=== PATIENT | male | born 1940 | race Caucasian/White ===

== ENCOUNTER → 2016-10-19 | Outpatient (CLI) | payer MEDICARE ==
[~2016-10-19] MED LIST: ACET325; ALPR.25 PO; ALPR.5 PO; Aspirin Chew PO; CYAN1KIT2 IM; HYDR-2768 PO; IBUP400T20 PO; IRON18TA2 PO; IRON27TA PO; TOPR25TA PO
[2016-10-19 12:46] LABS: AUTOMATED NEUTROPHIL # 2.8 TH/MM3 (1.8-7.7); BASOPHIL % 0.7 % (0.0-2.0); EOSINOPHIL # 0.1 TH/MM3 (0-0.4); HEMATOCRIT 41.7 % (39.0-51.0); HEMO FLAGS DIFF FINAL; LYMPHOCYTE # 1.2 TH/MM3 (1.0-4.8); MEAN CORPUSCULAR HEMOGLOBIN 30.1 PG (27.0-34.0); MEAN CORPUSCULAR HGB CONC 33.5 % (32.0-36.0); MONO % 10.1 % (0.0-8.0); NEUT % 61.2 % (16.0-70.0); PLATELET COUNT 225 TH/MM3 (150-450); RED BLOOD COUNT 4.63 MIL/MM3 (4.50-5.90); RED CELL DISTRIBUTION WIDTH 15.1 % (11.6-17.2); WHITE BLOOD COUNT 4.6 TH/MM3 (4.0-11.0)
[2016-10-19 13:15] LABS: ALKALINE PHOSPHATASE 78 U/L (45-117); ALT (GPT) 19 U/L (12-78); ANION GAP 10 MEQ/L (5-15); AST (GOT) 13 U/L (15-37); BLOOD UREA NITROGEN 13 MG/DL (7-18); CHLORIDE 104 MEQ/L (98-107); GLOMERULAR FILTRATION RATE 93 ML/MIN (>89); GLUCOSE,FASTING 122 MG/DL (74-99); HDL CHOLESTEROL 63.6 MG/DL (40.0-60.0); LDL CHOLESTEROL 112 MG/DL (0-99); SODIUM (NA) 140 MEQ/L (136-145); TOTAL BILIRUBIN ADULT 0.4 MG/DL (0.2-1.0)
[2016-10-19 16:44] LABS: HEMOGLOBIN A1a 1.1 %; HEMOGLOBIN A1b 1.6 %; HEMOGLOBIN Ao 84.3 %; HEMOGLOBIN LA1C 2.4 %; HEMOGLOBIN P3 5.7 %
== END ==
LOC: PLAB 08:34
PROVIDERS: ATTEND Family Medicine
DX: I10 Essential (primary) hypertension (principal); I35.0 Nonrheumatic aortic (valve) stenosis; K21.9 Gastro-esophageal reflux disease without esophagitis; G25.81 Restless legs syndrome; E11.9 Type 2 diabetes mellitus without complications
CPT/HCPCS: 36415; 80053; 80061; 83036; 85025

== ENCOUNTER 2017-02-01 18:58 | Observation (INO) | payer MEDICARE ==
[2017-02-01] VITALS (16 sets, daily range): BP systolic 144–192; BP diastolic 68–97; PULSE 66–100; RESP 18–20; TEMP 98–98.5; O2SAT 93–99
[~2017-02-01] VITALS: Ht 177.8 cm; Wt 102.3 kg
[~2017-02-01 18:58] MED LIST changes: -ALPR.5 PO; -Aspirin Chew PO; -CYAN1KIT2 IM; -IRON18TA2 PO; -TOPR25TA PO
[2017-02-01] MEDS ORDERED: SODIUM CHLOR 0.9% 1000 ML INJ 1,000 ML IV ONE (19:13)
--- NOTE | 2017-02-01 19:22 | RADHPO ---
EXAM DATE/TIME: 02/01/2017 18:59 [facility] COMPARISON: No previous studies available for comparison. INDICATIONS : Stroke alert, tingling and right arm numbess. RADIATION DOSE: 56.94 CTDIvol (mGy) This report was called by Angie to Kirill at 1918 MEDICAL HISTORY : Hypertension. SURGICAL HISTORY : Appendectomy. Cholecystectomy. ENCOUNTER: Initial ACUITY: 1 day PAIN SCALE: 5/10 LOCATION: Right cranial numbness TECHNIQUE: Multiple contiguous axial images were obtained of the head. Using automated exposure control and adj ustment of the mA and/or kV according to patient size, radiation dose was kept as low as reasonably a chievable to obtain optimal diagnostic quality images. FINDINGS: CEREBRUM: The ventricles are normal for age. No evidence of midline shift, mass lesion, hemorrhage or acute in farction. No extra-axial fluid collections are seen. POSTERIOR FOSSA: The cerebellum and brainstem are intact. The 4th ventricle is midline. The cerebellopontine angle i s unremarkable. EXTRACRANIAL: The visualized portion of the orbits is intact. SKULL: The calvaria is intact. No evidence of skull fracture. CONCLUSION: Normal examination. Kartik Adams MD on February 01, 2017 at 19:18 Board Certified Radiologist. This report was verified electronically.
[2017-02-01 19:25] LABS: AUTOMATED NEUTROPHIL # 4.4 TH/MM3 (1.8-7.7); BASOPHIL % 0.6 % (0.0-2.0); EOSINOPHIL % 0.5 % (0.0-4.0); HEMATOCRIT 37.8 % (39.0-51.0); HEMO FLAGS DIFF FINAL; LYMPH % 25.8 % (9.0-44.0); LYMPHOCYTE # 1.8 TH/MM3 (1.0-4.8); MEAN CELL VOLUME 90.9 FL (80.0-100.0); MEAN CORPUSCULAR HEMOGLOBIN 31.2 PG (27.0-34.0); MEAN CORPUSCULAR HGB CONC 34.3 % (32.0-36.0); MONO % 8.4 % (0.0-8.0); NEUT % 64.7 % (16.0-70.0); PLATELET COUNT 224 TH/MM3 (150-450); RED BLOOD COUNT 4.16 MIL/MM3 (4.50-5.90); RED CELL DISTRIBUTION WIDTH 14.8 % (11.6-17.2); WHITE BLOOD COUNT 6.9 TH/MM3 (4.0-11.0)
[2017-02-01 19:36] LABS: BLOOD, URINE NEG (NEG); GLUCOSE,URINE NEG (NEG); KETONE, URINE TRACE mg/dL (NEG); NITRITE,URINE NEG (NEG); PH, URINE 5.5 (5.0-8.5)
[2017-02-01 19:37] LABS: CHLORIDE 107 MEQ/L (98-107); POTASSIUM 3.4 MEQ/L (3.5-5.1); SODIUM (NA) 143 MEQ/L (136-145)
[2017-02-01 19:40] LABS: ANION GAP 10 MEQ/L (5-15); BICARBONATE 25.9 MEQ/L (21.0-32.0)
[2017-02-01 19:41] LABS: BLOOD UREA NITROGEN 20 MG/DL (7-18)
--- NOTE | 2017-02-01 19:41 | PD ---
HPI Chief Complaint: Neuro Symptoms/ Deficits Time Seen by Provider: 19:13 Travel History International Travel<30 days: No Contact w/Intl Traveler<30days: No Traveled to known affect area: No History of Present Illness HPI The patient is a 76-year-old male that states he is not been feeling right in his head for 3 days. He woke up this morning and had tingling on both sides of his lips. At approximately 645 he had trouble controlling a tremor in his right arm and states he could not open his right hand. He denies any weakness in his right hand and has an excellent hand gas inspector. He said he is had no tremor before. He does have a history of anxiety. He denies any right leg symptoms, has normal speech and denies any headache. He denies any vertigo. PFSH Past Medical History Cancer: No Cardiovascular Problems: Yes Diabetes: No Diminished Hearing: No Endocrine: No Gastrointestinal Disorders: Yes (gerd) Hepatitis: No Hiatal Hernia: No Hypertension: Yes Immune Disorder: No Musculoskeletal: Yes (arthritis ) Neurologic: No Psychiatric: No Reproductive: No Respiratory: No Thyroid Disease: No Tetanus Vaccination: < 5 Years Influenza Vaccination: No Past Surgical History Abdominal Surgery: Yes (gallbladder, APPY) AICD: No Eye Surgery: Yes (cataract surgery) Joint Replacement: No Pacemaker: No Tonsillectomy: Yes (CHILDHOOD) Other Surgery: Yes (L salivary gland surgery ) Social History Alcohol Use: Yes (3 DRINKS DAILY) Tobacco Use: No (QUIT 30 YEARS AGO) Substance Use: No Allergies-Medications (Allergen,Severity, Reaction): Coded Allergies: No Known Allergies (Verified , 02/01/17) Reported Meds & Prescriptions Reported Meds & Active Scripts Active Reported B-12 Compliance Inj (Cyanocobalamin) 1,000 Mcg/Ml Kit 1,000 Mcg IM Q30D Iron (Ferrous Fumarate) 18 Mg Tab 65 Mg PO DAILY Toprol XL (Metoprolol Succinate) 25 Mg Tab 25 Mg PO DAILY Xanax (Alprazolam) 0.5 Mg Tab 0.5 Mg PO HS Review of Systems Except as stated in HPI: all other systems reviewed are Neg Physical Exam Narrative GENERAL: The patient is alert, anxious, oriented 3 in no physical distress. His vital signs show blood pressure 162/97 with a heart rate of 100 which is a sinus tachycardia and are otherwise normal. Repeat blood pressure is 175/80 and repeat heart rate is 92. SKIN: Focused skin assessment warm/dry. HEAD: Atraumatic. Normocephalic. EYES: Pupils equal and round. No scleral icterus. No injection or drainage. ENT: No nasal bleeding or discharge. Mucous membranes pink and moist. NECK: Trachea midline. No JVD. CARDIOVASCULAR: Regular rate and rhythm. No murmur appreciated. RESPIRATORY: No accessory muscle use. Clear to auscultation. Breath sounds equal bilaterally. GASTROINTESTINAL: Abdomen soft, non-tender, nondistended. Hepatic and splenic margins not palpable. MUSCULOSKELETAL: No obvious deformities. No clubbing. No cyanosis. No edema. NEUROLOGICAL: Awake and alert. No obvious cranial nerve deficits. Motor grossly within normal limits. Normal speech. On the finger to nose test the patient performs is fairly well when he can control his tremor. He does not past point. PSYCHIATRIC: Appropriate mood and affect; insight and judgment normal. Data Data Last Documented VS Vital Signs Date Time Temp Pulse Resp B/P Pulse Ox O2 Delivery O2 Flow Rate FiO2 02/01/17 19:15 20 99 Room Air 02/01/17 19:05 98.0 100 162/[address] Brain W/O Iv Contrast(Rout) (02/01/17 ) Cath For Specimen (02/01/17 19:13) Neuro Checks Q2HX12,Q4H (02/01/17 19:13) Nursing Bedside Swallow Assess .ONCE (02/01/17 19:13) Activity Bed Rest (02/01/17 19:13) Diet Npo (02/02/17 Breakfast) Prothrombin Time / Inr (Pt) (02/01/17 19:13) Act Partial Throm Time (Ptt) (02/01/17 19:13) Complete Blood Count With Diff (02/01/17 19:13) Basic Metabolic Panel (Bmp) (02/01/17 19:13) Fibrinogen (02/01/17 19:13) Creatine Kinase (Cpk) (02/01/17 19:13) Troponin I (02/01/17 19:13) Ua Includes Microscopic (02/01/17 19:13) Drug Screen, Random Urine (02/01/17 19:13) Type And Screen (02/01/17 19:13) Electrocardiogram (02/01/17 ) Consult Neurology (02/01/17 19:13) Sodium Chlor 0.9% 1000 Ml Inj (Ns 1000 M (02/01/17 19:13) Blood Glucose (02/01/17 19:13) Ecg Monitoring (02/01/17 19:13) Iv Access Insert/Monitor (02/01/17 19:13) NPO (02/01/17 19:13) Oximetry (02/01/17 19:13) Oxygen Administration (02/01/17 19:13) Resp Oxygen Nicola C Titrat 1-4 L (02/01/17 19:13) (Hub Use Only)Inp Phy Cons/Ref (02/01/17 ) Labs Laboratory Tests Test 02/01/17 02/01/17 19:15 19:30 White Blood Count 6.9 TH/MM3 Red Blood Count 4.16 MIL/MM3 Hemoglobin 13.0 GM/DL Hematocrit 37.8 % Mean Corpuscular Volume 90.9 FL Mean Corpuscular Hemoglobin 31.2 PG Mean Corpuscular Hemoglobin 34.3 % Concent Red Cell Distribution Width 14.8 % Platelet Count 224 TH/MM3 Mean Platelet Volume 8.0 FL Neutrophils (%) (Auto) 64.7 % Lymphocytes (%) (Auto) 25.8 % Monocytes (%) (Auto) 8.4 % Eosinophils (%) (Auto) 0.5 % Basophils (%) (Auto) 0.6 % Neutrophils # (Auto) 4.4 TH/MM3 Lymphocytes # (Auto) 1.8 TH/MM3 Monocytes # (Auto) 0.6 TH/MM3 Eosinophils # (Auto) 0.0 TH/MM3 Basophils # (Auto) 0.0 TH/MM3 CBC Comment DIFF FINAL Differential Comment Prothrombin Time 10.5 SEC Prothromb Time International 1.0 RATIO Ratio Activated Partial 23.8 SEC Thromboplast Time Sodium Level 143 MEQ/L Potassium Level 3.4 MEQ/L Chloride Level 107 MEQ/L Carbon Dioxide Level 25.9 MEQ/L Anion Gap 10 MEQ/L Blood Urea Nitrogen 20 MG/DL Creatinine 0.92 MG/DL Estimat Glomerular Filtration 80 ML/MIN Rate Random Glucose 122 MG/DL Calcium Level 8.7 MG/DL Total Creatine Kinase 141 U/L Troponin I LESS THAN 0.02 NG/ML Urine Color YELLOW Urine Turbidity CLEAR Urine pH 5.5 Urine Specific [place] 1.031 Urine Protein TRACE mg/dL Urine Glucose (UA) NEG mg/dL Urine Ketones TRACE mg/dL Urine Occult Blood NEG Urine Nitrite NEG Urine Bilirubin NEG Urine Leukocyte Esterase NEG Urine RBC 0-2 /hpf Urine WBC 0-2 /hpf Urine Squamous Epithelial 0-5 /hpf Cells Urine Bacteria NONE /hpf Urine Opiates Screen NEG Urine Barbiturates Screen NEG Urine Amphetamines Screen NEG Urine Benzodiazepines Screen POS Urine Cocaine Screen NEG Urine Cannabinoids Screen NEG MDM Medical Decision Making Medical Screen Exam Complete: Yes Emergency Medical Condition: Yes Medical Record Reviewed: Yes Interpretation(s) EKG shows sinus rhythm and no acute ST elevation or depression. The CBC is normal except for hematocrit of 37.8. The urine toxicology screen is negative for all substances tested except benzodiazepines, Xanax as a prescribed medication for this patient. The urine shows trace ketones, urine specific gravity 1.031 is otherwise normal and culture is not indicated. Differential Diagnosis Anxiety, conversion reaction, ischemic CVA, tremor etiology undetermined Narrative Course The patient has a right arm tremor etiology undetermined. I discussed the patient with Dr. Billingsley in neurology and he suggested the patient be admitted and an MRI of the brain be done. I discussed the patient with Dr. Mazariegos, the patient will be 23 hour observation to her. Procedures EKG Prior to Arrival: No Diagnosis Primary Impression: Tremor of right hand Additional Impression: Anxiety Admitting Information Admitting Physician Requests: Observation Chau Vasquez MD February 01, 2017 19:41
[2017-02-01 19:42] LABS: COMMENT2 (UR) MUCOUS PRESENT; RBC, URINE 0-2 /hpf (0-3); SQUAMOUS EPITHELIAL CELL URINE 0-5 /hpf (0-5); URINE COLOR YELLOW (YELLW/STRAW); WBC, URINE 0-2 /hpf (0-5)
[2017-02-01 19:42] LABS: APTT (PATIENT) 23.8 SEC (24.3-30.1); PROTHROMBIN TIME - PATIENT 10.5 SEC (9.8-11.6)
[2017-02-01 19:44] LABS: GLOMERULAR FILTRATION RATE 80 ML/MIN (>89)
[2017-02-01 19:44] LABS: AMPHETAMINE, URINE NEG (NEG); BARBITURATES, URINE NEG (NEG)
[2017-02-01 19:45] LABS: COCAINE, URINE NEG (NEG)
[2017-02-01 19:47] LABS: CREATINE KINASE 141 U/L (39-308)
[2017-02-01] MEDS ORDERED: TOPR25TA PO (19:57)
[2017-02-01] MEDS ORDERED: ALPR.5 PO (19:57)
[2017-02-01] MEDS ORDERED: IRON18TA2 PO (19:58)
[2017-02-01] MEDS ORDERED: CYAN1KIT2 IM (19:58)
[2017-02-01] MEDS ORDERED: SODIUM CHLORIDE 0.9% FLUSH 10 ML FLUSH IV FLUSH PRN (20:30)
[2017-02-01] MEDS: SODIUM CHLORIDE 0.9% FLUSH 10 ML FLUSH IV FLUSH SCH (20:50)
[2017-02-01] MEDS ORDERED: ALPRAZolam 0.5 MG TAB PO ONE (23:00)
[2017-02-02] VITALS (9 sets, daily range): BP systolic 156–182; BP diastolic 78–100; PULSE 63–77; RESP 18–22; TEMP 96.5–98; O2SAT 95–98
--- NOTE | 2017-02-02 06:39 | EKG ---
Date Performed: 02/01/2017 Time Performed: 19:10:06 PTAGE: 76 years EKG: Sinus rhythm with premature atrial contractions Inferior/lateral ST-T changes are nonspecific Borderline ECG COMP ARED TO PRIOR ELECTROCARDIOGRAM, ST segment changes are present. PREVIOUS TRACING : 01/18/2016 10.05 DOCTOR: Ramy Roberson Interpretating Date/Time 02/02/2017 06:39:00
--- NOTE | 2017-02-02 08:20 | RADHPO ---
EXAM DATE/TIME: 02/02/2017 07:54 [facility] COMPARISON: No previous studies available for comparison. INDICATIONS : Syncope. MEDICAL HISTORY : Hypertension. Aortic valve stenosis. SURGICAL HISTORY : Cholecystectomy. Appendectomy. Tonsillectomy. Cataracts removed. Left side saliva glands removed. ENCOUNTER: Initial ACUITY: 1 day PAIN SCORE: 1/10 LOCATION: Bilateral neck PEAK SYSTOLIC VELOCITIES (cm/sec): ICA/CCA RATIO: Right: 2.0 Left: 1.2 ICA: Right: 123 Left: 98 CCA: Right: 62 Left: 81 ECA: Right: 108 Left: 69 VERTEBRAL: Right: 33 antegrade Left: 79 antegrade Elevated flow velocities and ICA/CCA ratios have been found to correlate with increased degrees of vessel stenosis, calculated as percentage of diameter relative to a normal segment of distal ICA/CCA FINDINGS: RIGHT CAROTID: No significant stenosis is visualized. Minimal plaque. The waveforms are within normal limits. LEFT CAROTID: No significant stenosis is visualized. Minimal plaque. The waveforms are within normal limits. VERTEBRAL ARTERIES: Antegrade flow is seen in both vertebral arteries. MISCELLANEOUS: None. CONCLUSION: Slightly elevated ratio and borderline elevated velocities suggest a 50% stenosis of the right video editing intern al carotid artery. No hemodynamically significant stenosis on the left. Farhad Miranda MD on February 02, 2017 at 8:16 Board Certified Radiologist. This report was verified electronically.
[2017-02-02] MEDS ORDERED: GLUCAGON 1 MG/ML VIAL IM/SQ PRN (09:00)
[2017-02-02] MEDS ORDERED: SODIUM CHLORIDE 0.9% FLUSH 10 ML FLUSH IV FLUSH PRN (09:00)
[2017-02-02] MEDS ORDERED: SODIUM CHLORIDE 0.9% FLUSH 10 ML FLUSH IV FLUSH SCH (09:00)
[2017-02-02] MEDS ORDERED: DEXTROSE 50% IN WATER 50 ML VIAL(D50) IV PUSH PRN (09:00)
--- NOTE | 2017-02-02 09:28 | MB ---
cc: NEVIN BAE M.D. DATE OF CONSULTATION 02/02/2017 REASON FOR CONSULTATION Stroke alert HISTORY OF PRESENT ILLNESS Mr. Alexander is a 76-year-old man who presented to the ER yesterday evening as a stroke alert. I spoke with Dr. Vasquez. He noted difficulty with a tremor in the right arm coming out around 06:45 p.m. He could not open his right hand. When he presented the ER, he had mainly a tremor, but was able to do [id number] well. He had normal strength in the hand. CT of the brain was unremarkable. I spoke to Dr. Vasquez in the ER, the symptoms were mainly that of a tremor. There is no clear evidence of a stroke and definitely the symptoms were improving and with minimal deficit, I recommended against IV tPA since the patient was not clearly having a stroke and the symptoms were minimal. He does note that when he woke up in the morning he was having headaches. He has been having migraine headaches and occipital neuralgia headaches with significant anxiety as well. PAST MEDICAL HISTORY History of: 1. Migraine headaches 2. Cervical spondylosis 3. Cholecystectomy 4. Appendectomy 5. Cataract surgery 6. Salivary gland surgery 7. Hypertension ALLERGIES None known. MEDICATIONS At home: 1. Toprol XL 25 mg daily 2. Xanax as needed for anxiety. 3. Vitamin B12 4. Iron complex SOCIAL HISTORY He drinks alcohol three drinks daily. He stopped smoking 30 years ago. No other drug abuse. NEUROLOGIC EXAMINATION Blood pressure is 182/95, pulse 76, respiratory rate is 20, temperature 96.5 degrees. Higher cortical functions normal. Cranial nerves II-XII are normal in detail. On motor exam, he has got 5/5 strength of all groups in both upper and lower extremities. Fine motor skills are normal. There is no drift in the hands including the right hand. He has sustention tremors in both upper extremities worse on the right. Puhcxb-[id number] is normal with no dysmetria. No dysdiadochokinesia. Strength is normal in the legs. Sensory exam is normal. Tinel's is negative of the wrist and elbow. Reflexes 2+ and symmetric. CT of the brain shows no acute change, normal CT. Carotid ultrasound was performed as well showing 50% stenosis of the right internal carotid artery. No stenosis on the left. LABORATORY DATA White count is 6900, hemoglobin 13, hematocrit 37% platelet count 224 thousand, PT 10.5, INR 1, APTT 23.8. Sodium is 143, potassium 3.4, chloride 107, CO2 25.9, BUN is 20, creatinine 0.92, GFR is 80, glucose 122, calcium 8.7, CPK 141. Tox screen positive for benzodiazepines. Urinalysis pH is 5.5, specific gravity 1.031. IMPRESSION Tremor right upper extremity. There is no clear evidence for stroke at the present time. This could be related to an essential tremor versus anxiety. Rule out cervical radiculopathy. RECOMMENDATIONS I would like to get a brain MRI to rule out stroke as well as an MRA, also MRI cervical spine for further evaluation. We will check an echocardiogram as well. I would start low-dose aspirin until we get the MRI scan for the remote chance of stroke 81 mg daily. MD CACHORRO Arrieta/REZA /8:52 AM /9:22 AM
[2017-02-02] MEDS: ASPIRIN 81 MG CHEW TAB PO SCH (09:45)
[2017-02-02] MEDS: SODIUM CHLORIDE 0.9% FLUSH 10 ML FLUSH IV FLUSH SCH ×2 (09:46→20:21)
[2017-02-02 10:14] LABS: HDL CHOLESTEROL 47.1 MG/DL (40.0-60.0)
[2017-02-02] MEDS: INSULIN ASPART SUPPLEMENTAL SCALE SQ SCH ×3 (11:00→21:00)
--- NOTE | 2017-02-02 11:11 | HHI.HP ---
[facility] Carlos Ibarra MD Admission Diagnosis tremor right arm Diagnoses: Chief Complaint: Right arm weakness and tremor Travel History International Travel<30 Days: No Contact w/Intl Traveler <30 Da: No Traveled to Known Affected Are: No History of Present Illness 76 years old male with history of migraine headaches cervical spondylolysis presented to the ED as a stroke alert due to having right arm tremor and weakness happened all of a sudden while he was having dinner. Symptoms improved prior to arriving to the hospital, neurologist was old and he recommended against TPA since patient symptoms only tremor and it's already improving. 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 Currently no headache or blurry vision no dizziness or lightheadedness or chest pain or short of breath no abdominal pain diarrhea constipation, no fever or chills or diarrhea or constipation. Patient told me he has a history of aortic stenosis for which she'll follow up with a correspondence representative last 2-D echo was 2 years ago and he was told to follow up after 5 years, patient reportedH/O dizziness worsened recently and he had it for 3 days before this episode Review of Systems Except as stated in HPI: all other systems reviewed are Neg All systems reviewed and was positive for what is mentioned in history of present illness otherwise negative Past Family Social History Past Medical History Migraine headache History of aortic stenosis Cervical spondylosis Cholecystectomy Appendectomy Cataract surgery Salivary gland surgery Hypertension Past Surgical History As above Allergies: Coded Allergies: No Known Allergies (Verified , 02/01/17) Family History Mother had CABG in her 80s, father had valvulopathy and valve replacement Physical Exam Vital Signs Vital Signs Date Time Temp Pulse Resp B/P Pulse Ox O2 Delivery O2 Flow Rate FiO2 02/02/17 08:00 96.5 76 20 182/95 98 02/02/17 04:00 96.5 77 18 156/100 97 02/02/17 00:00 97.8 63 18 160/83 97 02/02/17 00:00 97.8 63 18 160/83 97 02/01/17 23:00 66 02/01/17 22:00 98.0 67 20 183/72 93 02/01/17 21:40 98.5 68 18 149/71 95 Room Air 02/01/17 21:10 76 18 158/68 95 Room Air 02/01/17 20:40 76 18 144/77 96 Room Air 02/01/17 20:10 80 18 166/84 95 Room Air 02/01/17 20:00 98.0 67 20 183/72 93 02/01/17 19:55 80 18 180/79 97 Room Air 02/01/17 19:40 90 18 175/80 96 Room Air 02/01/17 19:35 100 20 190/86 96 Room Air 02/01/17 19:30 96 20 192/88 95 Room Air 02/01/17 19:25 94 20 182/93 98 Room Air 02/01/17 19:15 20 99 Room Air 02/01/17 19:15 97 21 02/01/17 19:15 94 20 174/83 99 Room Air 02/01/17 19:14 97 21 02/01/17 19:10 99 Room Air 02/01/17 19:10 99 Room Air 02/01/17 19:05 98.0 100 20 162/97 99 Physical Exam GENERAL: This is a well-nourished, well-developed patient, in no apparent distress. SKIN: No rashes, ecchymoses or lesions. Cool and dry. HEAD: Atraumatic. Normocephalic. No temporal or scalp tenderness. EYES: Pupils equal round and reactive. Extraocular motions intact. No scleral icterus. No injection or drainage. ENT: Nose without bleeding, purulent drainage or septal hematoma. Throat without erythema, tonsillar hypertrophy or exudate. Uvula midline. Airway patent. NECK: Trachea midline. No JVD or lymphadenopathy. Supple, nontender, no meningeal signs. CARDIOVASCULAR: Regular rate and rhythm positive systolic murmur 4 out of 6 more in the aortic area RESPIRATORY: Clear to auscultation. Breath sounds equal bilaterally. No wheezes , rales, or rhonchi. GASTROINTESTINAL: Abdomen soft, non-tender, nondistended. No hepato-splenomegaly , or palpable masses. No guarding. MUSCULOSKELETAL: Extremities without clubbing, cyanosis, or edema. No joint tenderness, effusion, or edema noted. No calf tenderness. Negative Homans sign bilaterally. NEUROLOGICAL: Awake and alert. Cranial nerves II through XII intact. Motor and sensory grossly within normal limits. Five out of 5 muscle strength in all muscle groups. Normal speech. Laboratory Laboratory Tests Test 02/01/17 02/01/17 02/02/17 19:15 19:30 05:20 White Blood Count 6.9 Red Blood Count 4.16 Hemoglobin 13.0 Hematocrit 37.8 Mean Corpuscular Volume 90.9 Mean Corpuscular Hemoglobin 31.2 Mean Corpuscular Hemoglobin 34.3 Concent Red Cell Distribution Width 14.8 Platelet Count 224 Mean Platelet Volume 8.0 Neutrophils (%) (Auto) 64.7 Lymphocytes (%) (Auto) 25.8 Monocytes (%) (Auto) 8.4 Eosinophils (%) (Auto) 0.5 Basophils (%) (Auto) 0.6 Neutrophils # (Auto) 4.4 Lymphocytes # (Auto) 1.8 Monocytes # (Auto) 0.6 Eosinophils # (Auto) 0.0 Basophils # (Auto) 0.0 CBC Comment DIFF FINAL Differential Comment Prothrombin Time 10.5 Prothromb Time International 1.0 Ratio Activated Partial 23.8 Thromboplast Time Fibrinogen 289 Sodium Level 143 Potassium Level 3.4 Chloride Level 107 Carbon Dioxide Level 25.9 Anion Gap 10 Blood Urea Nitrogen 20 Creatinine 0.92 Estimat Glomerular Filtration 80 Rate Random Glucose 122 Calcium Level 8.7 Total Creatine Kinase 141 Troponin I LESS THAN 0.02 Blood Type O POSITIVE Antibody Screen NEGATIVE Blood Bank Comment Urine Color YELLOW Urine Turbidity CLEAR Urine pH 5.5 Urine Specific [place] 1.031 Urine Protein TRACE Urine Glucose (UA) NEG Urine Ketones TRACE Urine Occult Blood NEG Urine Nitrite NEG Urine Bilirubin NEG Urine Leukocyte Esterase NEG Urine RBC 0-2 Urine WBC 0-2 Urine Squamous Epithelial 0-5 Cells Urine Bacteria NONE Urine Opiates Screen NEG Urine Barbiturates Screen NEG Urine Amphetamines Screen NEG Urine Benzodiazepines Screen POS Urine Cocaine Screen NEG Urine Cannabinoids Screen NEG Triglycerides Level 81 Cholesterol Level 159 LDL Cholesterol 96 HDL Cholesterol 47.1 Cholesterol/HDL Ratio 3.37 Result Diagram: 02/01/17191402/01/171914 Imaging Last Impressions Carotid Artery Ultrasound 02/02/17 4093 Signed Impressions: Service Date/Time: Thursday, February 02, 2017 07:54 - CONCLUSION: Slightly elevated ratio and borderline elevated velocities suggest a 50%% stenosis of the right internal carotid artery. No hemodynamically significant stenosis on the left. Farhad Miranda MD Head CT 02/01/17 0000 Signed Impressions: Service Date/Time: January 18:59 - CONCLUSION: Normal examination. Kartik Adams MD Assessment and Plan Assessment and Plan 76 years old male with history of aortic stenosis and migraine headache presented with Right arm weakness and tremor which resolved completely Rule out TIA versus essential tremor, CT brain and carotid ultrasound personally reviewed by me unremarkable except for 50% stenosis in the right carotid internal Neurology consulted appreciated their input, recommended MRI/MRA of the brain and the neck, patient started on low dose aspirin, 2-D echo pending Checking hemoglobin A1c and lipid panel History of aortic stenosis with worsening Followed by cardiology, last 2-D echo in 2 years, patient was told to follow after 5 years We ordered 2-D echo still pending we'll monitor for valve surface and gradient History of migraine headache, and cervical spondylosis Follow neurology recommendation Hypertension: Blood pressure need to be controlled when okay with neurology, after reviewing MRI/MRA History of anxiety Patient takes Xanax daily we'll continue that to avoid withdrawal seizure DVT prophylaxis with heparin Discussed Condition With Patient Sandeep Wilson MD February 02, 2017 11:11
[2017-02-02] MEDS ORDERED: Aspirin Chew PO (11:17)
[2017-02-02] MEDS: THIAMINE HCL 100 MG TAB PO SCH (13:05)
[2017-02-02 13:07] LABS: HEMOGLOBIN A1a 1.1 %; HEMOGLOBIN A1b 1.6 %; HEMOGLOBIN LA1C 2.2 %
--- NOTE | 2017-02-02 16:14 | RADHPO ---
EXAM DATE/TIME: 02/02/2017 15:40 [facility] COMPARISON: No previous studies available for comparison. INDICATIONS : Right upper extremity weakness. MEDICAL HISTORY : Hypertension. SURGICAL HISTORY : Appendectomy. Cholecystectomy. ENCOUNTER: Initial ACUITY: 1 day PAIN SCORE: 0/10 LOCATION: cranial Please note a normal MRA of the brain does not entirely exclude the possibility of a small aneurysm, nor the possibility of distal intracranial vessel disease. TECHNIQUE: 3D time of flight MRA was performed. Source images, multiplanar STS MIP, and 3D volume MIP reconstru ctions were reviewed. FINDINGS: There is excellent visualization of the major intracranial arteries out to the second-order branch ve ssels. There is no evidence for aneurysm, vessel truncation or stenosis, and no evidence for vascula r malformation. Anterior communicating artery. Vertebrobasilar junction normal. Basilar artery unrema rkable. Posterior communicating arteries are not seen. Distal internal carotid arteries are normal. CONCLUSION: 1. No stenosis or aneurysm. 2. Normal variants as described above. Farhad Miranda MD on February 02, 2017 at 16:10 Board Certified Radiologist. This report was verified electronically.
--- NOTE | 2017-02-02 16:15 | RADHPO ---
EXAM DATE/TIME: 02/02/2017 15:40 [facility] COMPARISON: CT BRAIN W/O CONTRAST, February 01, 2017, 18:59. INDICATIONS : Right upper extremity weakness. MEDICAL HISTORY : Hypertension. SURGICAL HISTORY : Appendectomy. Cholecystectomy. ENCOUNTER: Initial ACUITY: 1 day PAIN SCORE: 0/10 LOCATION: cranial TECHNIQUE: Multiplanar, multisequence MRI of the brain was performed without contrast. FINDINGS: CEREBRUM: The ventricles are normal for age. No evidence of midline shift, mass lesion, hemorrhage or acute in farction. No extraaxial fluid collections are seen. The pituitary gland and suprasellar cistern are normal in configuration. WHITE MATTER: Scattered foci of bright T2 signal abnormalities are seen in the white matter. POSTERIOR FOSSA: The cerebellum and brainstem are intact. The 4th ventricle is midline. The cerebellopontine angle is unremarkable. The cerebellar tonsils are normal in position. DIFFUSION IMAGING: No focal areas of restricted diffusion are seen. No evidence of acute infarction. EXTRACRANIAL: The visualized portions of the orbits and paranasal sinuses are unremarkable. CONCLUSION: 1. Nonspecific white matter changes. 2. No acute intracranial abnormality. Farhad Miranda MD on February 02, 2017 at 16:12 Board Certified Radiologist. This report was verified electronically.
--- NOTE | 2017-02-02 17:00 | EC ---
Study Study Date:02/02/2017 STUDY CONCLUSIONS SUMMARY - Left ventricle: The cavity size was normal. Wall thickness was increased in a pattern of borderline LVH. Systolic function was normal. The estimated ejection fraction was in the range of 55% to 60%. Wall motion was normal; there were no regional wall motion abnormalities. - Aortic valve: Transvalvular velocity was increased, due to stenosis. There was severe stenosis. Mild regurgitation. Valve area: 0.67cm^2(VTI). Valve area: 0.7cm^2 (Vmax). - Mitral valve: Moderately calcified annulus. Mildly thickened leaflets, . Mild regurgitation. Valve area by continuity equation (using LVOT flow): 1.47cm^2. If LV function is below 40, please consider prescribing an ACEI or ARB or document rationale for non-use. PROCEDURE DATA STUDY STATUS: Elective. Procedure: Transthoracic echocardiography. Image quality was good. Scanning was performed from the parasternal, apical, and subcostal acoustic windows. Study completion: The patient tolerated the procedure well. Transthoracic echocardiography. M-mode, complete 2D, complete spectral Doppler, and color Doppler. Patient status: Inpatient. CARDIAC ANATOMY LEFT VENTRICLE: The cavity size was normal. Wall thickness was increased in a pattern of borderline LVH. Systolic function was normal. The estimated ejection fraction was in the range of 55% to 60%. Wall motion was normal; there were no regional wall motion abnormalities. AORTIC VALVE: Trileaflet; moderately thickened, severely calcified leaflets. Doppler: Transvalvular velocity was increased, due to stenosis. There was severe stenosis. Mild regurgitation. Valve area: 0.67cm^2(VTI). Valve area: 0.7cm^2 (Vmax). Mean gradient: 31mm Hg (S). Peak gradient: 72mm Hg (S). AORTA: Aortic root: The aortic root was normal in size. MITRAL VALVE: Moderately calcified annulus. Mildly thickened leaflets, . Doppler: Transvalvular velocity was within the normal range. There was no evidence for stenosis. Mild regurgitation. Valve area by pressure half-time: 3.55cm^2. Valve area by continuity equation (using LVOT flow): 1.47cm^2. Mean gradient: 2mm Hg (D). Peak gradient: 8mm Hg (D). LEFT ATRIUM: The atrium was at the upper limits of normal in size. RIGHT VENTRICLE: The cavity size was normal. Wall thickness was normal. PULMONIC VALVE: Doppler: Transvalvular velocity was within the normal range. There was no evidence for stenosis. No regurgitation. TRICUSPID VALVE: Structurally normal valve. Doppler: Transvalvular velocity was within the normal range. No regurgitation. PULMONARY ARTERY: The main pulmonary artery was normal-sized. Systolic pressure was within the normal range. RIGHT ATRIUM: The atrium was normal in size. PERICARDIUM: There was no pericardial effusion. SYSTEMIC VEINS: Inferior vena cava: The vessel was normal in size. BASIC MEASUREMENTS ADULT Normal Left ventricle LV internal dimension, ED, chordal level, 51.2 mm 43-52 PLAX LV internal dimension, ES, chordal level, *39.8 mm 23-38 PLAX Fractional shortening, chordal level, PLAX *22 % >29 LV posterior wall thickness, ED 9.76 mm IVS/LVPW ratio, ED 1.02 <1.3 Ventricular septum Septal thickness, ED 10 mm Left atrium Anterior-posterior dimension 39 mm Right ventricle RV internal dimension, ED, PLAX 22 mm 19-38 DOPPLER MEASUREMENTS ADULT Normal Aortic valve Peak velocity, S 337 cm/s Mean velocity, S 264 cm/s VTI, S 53.5 cm Mean gradient, S 31 mm Hg Peak gradient, S 72 mm Hg Valve area, VTI 0.67 cm^2 Valve area, Vmax 0.7 cm^2 Mitral valve Peak E-wave velocity 72.1 cm/s Peak A-wave velocity 73.1 cm/s Mean velocity, D 67.9 cm/s Pressure half-time 62 ms Mean gradient, D 2 mm Hg Peak gradient, D 8 mm Hg Peak E/A ratio 1 Valve area, pressure half-time 3.55 cm^2 Valve area, LVOT continuity 1.47 cm^2 Maximal regurgitant velocity 518 cm/s Tricuspid valve Regurgitant peak velocity 331 cm/s Peak RV-RA gradient, S 44 mm Hg Maximal regurgitant velocity 331 cm/s LEGEND: Mean values are shown as u=mean value. Asterisk (*) lucia values outside specified normal range. Prepared and signed by Martir Kelley [id number]
--- NOTE | 2017-02-02 17:15 | RADHPO ---
EXAM DATE/TIME: 02/02/2017 16:04 [facility] COMPARISON: No previous studies available for comparison. INDICATIONS : Right upper extremity weakness. MEDICAL HISTORY : Hypertension. SURGICAL HISTORY : Appendectomy. Cholecystectomy. ENCOUNTER: Initial ACUITY: 1 day PAIN SCORE: 0/10 LOCATION: [facility] TECHNIQUE: Multiplanar, multisequence MRI examination of the cervical spine was performed. FINDINGS: By MRI the marrow signal in the cervical vertebrae are homogeneous. Signal intensity of the cervical cord is normal. Cerebellar tonsils are in normal anatomic position. C2-C3: The thecal sac has a normal configuration. There is no evidence of disc herniation or spinal canal stenosis. The neural foramina are patent bilaterally.C3-C4: The thecal sac has a normal conf iguration. There is no evidence of disc herniation or spinal canal stenosis. The neural foramina ar e patent bilaterally. C4-C5: There is mild uncinate ridging present with minimal bilateral neural foraminal encroachment. C5-C6: Very minimal uncinate ridging is present. Neural foramina are adequate. C6-C7: There is minimal uncinate ridging and moderate left neural foraminal encroachment. C7-T1: The thecal sac has a normal configuration. There is no evidence of disc herniation or spinal canal stenosis. The neural foramina are patent bilaterally. CONCLUSION: 1. Degenerative changes at multiple levels. Most significant finding is neural foraminal encroachmen t at C6-7 on the left. 2. Signal intensity of the cord is normal. Maximo Morales MD FACR on February 02, 2017 at 17:07 Board Certified Radiologist. This report was verified electronically.
[2017-02-02] MEDS: HEPARIN SODIUM - SQ 10,000 UNITS/ML VIAL SQ SCH ×2 (17:25→22:00)
[2017-02-02] MEDS ORDERED: ACETAMINOPHEN 500 MG CPLT PO PRN (20:45)
[2017-02-02] MEDS ORDERED: ALPRAZolam 0.5 MG TAB PO SCH (21:00)
[2017-02-03 00:45] VITALS: BP 146/81; PULSE 53; RESP 18; TEMP 98.3; O2SAT 98
[2017-02-03 04:00] VITALS: BP 161/85; PULSE 64; RESP 18; TEMP 96.7; O2SAT 97
[2017-02-03] MEDS: INSULIN ASPART SUPPLEMENTAL SCALE SQ SCH ×2 (06:09→11:23)
[2017-02-03] MEDS: HEPARIN SODIUM - SQ 10,000 UNITS/ML VIAL SQ SCH (06:14)
[2017-02-03 07:10] VITALS: PULSE 61
[2017-02-03 08:00] VITALS: BP 156/91; PULSE 75; RESP 18; TEMP 97.5; O2SAT 99
[2017-02-03] MEDS: THIAMINE HCL 100 MG TAB PO SCH (08:48)
[2017-02-03] MEDS: ASPIRIN 81 MG CHEW TAB PO SCH (08:48)
[2017-02-03] MEDS: SODIUM CHLORIDE 0.9% FLUSH 10 ML FLUSH IV FLUSH SCH (08:49)
[2017-02-03 08:50] VITALS: PULSE 61
[2017-02-03 10:32] LABS: HDL CHOLESTEROL 48.1 MG/DL (40.0-60.0)
[2017-02-03 11:30] VITALS: O2SAT 97
--- NOTE | 2017-02-03 12:21 | HHI.DS ---
Discharge Summary Admission Date February 01, 2017 at 20:25 Discharge Date: February 03, 2017 Admitting Diagnosis tremor right arm (1) Anxiety ICD Code: F41.9 (2) Tremor of right hand ICD Code: R25.1 (3) Aortic stenosis ICD Code: I35.0 Procedures None Brief History - From Admission 76 years old male with history of migraine headaches cervical spondylolysis presented to the ED as a stroke alert due to having right arm tremor and weakness happened all of a sudden while he was having dinner. Symptoms improved prior to arriving to the hospital, neurologist was old and he recommended against TPA since patient symptoms only tremor and it's already improving. 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 Currently no headache or blurry vision no dizziness or lightheadedness or chest pain or short of breath no abdominal pain diarrhea constipation, no fever or chills or diarrhea or constipation. Patient told me he has a history of aortic stenosis for which she'll follow up with a rehab trainer last 2-D echo was 2 years ago and he was told to follow up after 5 years, patient reportedH/O dizziness worsened recently and he had it for 3 days before this episode CBC/BMP: 02/01/17191402/01/171914 Significant Findings Laboratory Tests Test 02/01/17 02/01/17 19:15 19:30 Red Blood Count 4.16 MIL/MM3 (4.50-5.90) Hematocrit 37.8 % (39.0-51.0) Monocytes (%) (Auto) 8.4 % (0.0-8.0) Activated Partial 23.8 SEC Thromboplast Time (24.3-30.1) Potassium Level 3.4 MEQ/L (3.5-5.1) Blood Urea Nitrogen 20 MG/DL (7-18) Estimat Glomerular Filtration 80 ML/MIN (>89) Rate Random Glucose 122 MG/DL (74-106) Troponin I LESS THAN 0.02 NG/ML (0.02-0.05) Urine Ketones TRACE mg/dL (NEG) Urine Benzodiazepines Screen POS (NEG) Hospital Course 76 years old male with history of aortic stenosis and migraine headache presented with 76 years old male presented to the ED complaining of sudden Right arm weakness and tremor which resolved completely, History of migraine headache, and cervical spondylosis Workup has been done to Rule out TIA versus essential tremor, CT brain and carotid ultrasound personally reviewed by me unremarkable except for 50% stenosis in the right carotid internal Neurology consulted appreciated their input, recommended MRI/MRA of the brain and the neck, patient started on low dose aspirin, 2-D echo ordered hemoglobin A1c and lipid panel , workup was positive for cervical C5-C6 spondylosis otherwise negative. 2-D echo didn't show any thrombotic source Patient has History of aortic stenosis which was worsening due to getting more dizziness recently He Followed by cardiology, last 2-D echo in 2 years, patient was told to follow after 5 years We ordered 2-D echo to monitor for valve surface and gradient, 2-D echo came back showing aortic surface 0.7cm2 which is less than 1, patient offered to consult with a cardiology however he preferred to be discharged since he has appointment with Dr. Falk his rehab trainer on Sunday, I extensively discussed with neurology, PA, and the patient Pt Condition on Discharge: Fair Discharge Disposition: Discharge Home Discharge Time: > 30 minutes Discharge Instructions DIET: Follow Instructions for: Heart Healthy Diet, Diabetic Diet Activities you can perform: Weight Bearing as [place] Follow up Referrals: Neurology - 1 Week with Carlos Billingsley PhD MD New Medications: ([Aspirin Chew]) 81 MG CHEW 81 MG PO DAILY neuro #30 TAB Continued Medications: Cyanocobalamin Inj (B-12 Compliance Inj) 1,000 Mcg/Ml Kit 1000 MCG IM Q30D #1 KIT Ferrous Fumarate (Iron) 18 Mg Tab 65 MG PO DAILY Nutritional Supplement Ref 0 TAB Metoprolol Succinate ER 24 HR (Toprol XL) 25 Mg Tab 25 MG PO DAILY #30 Ref 0 TAB Sandeep Wilson MD February 03, 2017 12:21
== END 2017-02-03 14:00 | disposition home or self-care (01) ==
LOC: PHED 18:58 → PHEDA 20:25 → PH3A 21:50
PROVIDERS: ADMIT Hospitalist; ATTEND Hospitalist
DX: R25.1 Tremor, unspecified (principal); R20.2 Paresthesia of skin; F41.9 Anxiety disorder, unspecified; I35.0 Nonrheumatic aortic (valve) stenosis; I10 Essential (primary) hypertension; M19.90 Unspecified osteoarthritis, unspecified site; M47.812 Spondylosis without myelopathy or radiculopathy, cervical region; Z87.891 Personal history of nicotine dependence
CPT/HCPCS: 70450; 70544; 70551; 72141; 80048; 80061; 80307; 81001; 82550; 82746; 82948; 83036; 84484; 85025; 85384; 85610; 85730; 86850; 86900; 86901; 92610; 93005; 93306; 93880; 96360; 97162; 97166; 99285; G0378; G8987; G8988; G8989; G8996; G8997; G8998; J1644; J7030